=== PATIENT | female | born 1935 | race Caucasian/White ===

== ENCOUNTER 2025-03-26 13:15 | Outpatient (CLI) | payer MEDICARE | END 2025-03-26 13:16 | disposition home or self-care (01) | LOC: CSHMRI 13:15 | PROVIDERS: ATTEND Physician Assistant | DX: I63.9 Cerebral infarction, unspecified (principal); R90.89 Other abnormal findings on diagnostic imaging of central nervous system | CPT/HCPCS: 70551 ==